=== PATIENT | female | born 1950 | race African-American/Black ===

== ENCOUNTER → 2022-07-29 | Day surgery (SDC) | payer MEDICARE, MEDICAID ==
[~2022-07-29] VITALS: Ht 157.5 cm; Wt 105.7 kg
[~2022-07-29] MED LIST: ALBU18HF2 IH; ALBUTEROL (0.083%) 2.5MG/3ML NEB ONE; ALBUTEROL 6.7GM HFA INHALER ONE; ALLO100T PO; ATOR10TA69 PO; AZIL80TA PO; CARV12.545 PO; CEFAZOLIN SODIUM 1000MG/VIAL ONE; COLC0.6C3 PO; FENTANYL CITRATE/PF 50MCG/ML 2ML VIAL ONE; FLUT15.844 NS; FURO40TA5 PO; HYDRALAZINE 20MG/ML VIAL IV NR; HYDROMORPHONE HCL/PF 2MG/ML CPJ IV PRN; LABETALOL 5MG/ML SYR 20 MG/4 ML SYRINGE IV PRN; LIDOCAINE HCL 1% 20ML VIAL (Pyxis) INJ ONE; METHYLPREDNISOLONE SOD SUCC 40 MG/ML VIAL IV NR; MIDAZOLAM HCL 2 MG/2 ML VIAL ONE; OMEG1CAP46 PO; ONDANSETRON HCL 4MG/2ML INJ IV PRN; PROPOFOL 200MG/20ML VIAL IV ONE; SODIUM CHLORIDE 0.9% 1,000 ML IV SCH
[2022-07-29] MEDS: MEPERIDINE HCL/PF 25MG/ML CPJ IV PRN ×2 (12:07→12:37)
[2022-07-29 12:37] VITALS: BP 150/76
== END | disposition home or self-care (01) ==
LOC: OR 07:22
PROVIDERS: ATTEND Obstetrics & Gynecology
DX: N95.0 Postmenopausal bleeding (principal); D25.1 Intramural leiomyoma of uterus; I10 Essential (primary) hypertension; E78.00 Pure hypercholesterolemia, unspecified; M19.90 Unspecified osteoarthritis, unspecified site; E11.9 Type 2 diabetes mellitus without complications; Z86.73 Personal history of transient ischemic attack (TIA), and cerebral infarction without residual deficits; Z79.84 Long term (current) use of oral hypoglycemic drugs; Z79.899 Other long term (current) drug therapy; Z98.890 Other specified postprocedural states; Z20.822 Contact with and (suspected) exposure to COVID-19
CPT/HCPCS: 36415; 58558; 82962; 86850; 86900; 86901; 87426; 88305; C9803; J0690; J2175; J2250; J2405; J2704; J2920; J3010; J3490